=== PATIENT | male | born 1955 | race Hispanic/Latino ===

== ENCOUNTER → 2022-04-08 | Outpatient (CLI) | payer MEDICARE | END | disposition home or self-care (01) | LOC: RAH 12:42 | PROVIDERS: ATTEND Physical Medicine & Rehabilitation | DX: M25.511 Pain in right shoulder (principal) | CPT/HCPCS: 73030 ==

== ENCOUNTER → 2023-04-11 | Outpatient (CLI) | payer MEDICARE ==
[~2023-04-11] MED LIST: IOHEXOL-350 75 ML VIAL IV ONE
== END | disposition home or self-care (01) ==
LOC: RAH 07:51
PROVIDERS: ATTEND Internal Medicine Gastroenterology
DX: K57.30 Diverticulosis of large intestine without perforation or abscess without bleeding (principal)
CPT/HCPCS: 74178; Q9967

== ENCOUNTER → 2024-12-26 | Outpatient (CLI) | payer MEDICARE ==
--- NOTE | 2024-12-26 21:02 | HMCIMG ---
STUDY: X-RAY OF BOTH KNEES, 3 VIEWS HISTORY: Pain in both knees; standing radiographs. TECHNIQUE: Standing anteroposterior, lateral, and oblique views of both knees are submitted for interpretation. COMPARISON: None provided. FINDINGS: Bones and joints: Mild reduction of the knee joint spaces bilaterally with subtle periarticular osteophyte formation, compatible with early degenerative change. No acute fracture, dislocation, or destructive osseous lesion is identified. Soft tissues: Periarticular soft tissues are unremarkable without significant soft tissue swelling or radiopaque foreign body. IMPRESSION: * Mild bilateral knee osteoarthritic change with joint space narrowing and subtle periarticular osteophytes. * No acute osseous abnormality of either knee. /Glorieta
== END | disposition home or self-care (01) ==
LOC: RAH 08:54
PROVIDERS: ATTEND Physical Medicine & Rehabilitation
DX: M17.0 Bilateral primary osteoarthritis of knee (principal); M25.761 Osteophyte, right knee; M25.762 Osteophyte, left knee; M25.861 Other specified joint disorders, right knee; M25.862 Other specified joint disorders, left knee; M25.561 Pain in right knee; M25.562 Pain in left knee